=== PATIENT | male | born 1990 | race Caucasian/White ===

== ENCOUNTER 2019-06-10 09:56 | Outpatient (CLI) | payer OTHER ==
--- NOTE | 2019-06-10 11:10 | RAD ---
RIGHT SHOULDER THREE VIEWS: HISTORY: Fall. Right shoulder pain. FINDINGS: No acute fracture or dislocation is seen. POS: [facility]
--- NOTE | 2019-06-10 11:11 | RAD ---
RIGHT CLAVICLE TWO VIEWS: HISTORY: Fall. Right shoulder pain. Clavicular pain. FINDINGS: The right clavicle is intact. POS: [facility]
== END 2019-06-10 09:57 | disposition home or self-care (01) ==
LOC: SCSRAD 09:56
PROVIDERS: ATTEND Family Medicine
DX: S49.91XA Unspecified injury of right shoulder and upper arm, initial encounter (principal)